=== PATIENT | female | born 1970 | race Caucasian/White ===

== ENCOUNTER 2018-06-12 02:25 | Outpatient (CLI) | payer MEDICAID, SELFPAY ==
[2018-06-12 13:14] LABS: Anion Gap 6.8 mmol/L (3-11); BUN 14 mg/dL (7-18); CO2 32.2 mmol/L (21.0-32.0); CREATININE 0.57 mg/dL (0.55-1.02); Calcium 8.2 mg/dL (8.5-10.1); Chloride 103 mmol/L (98-107); Glucose 75 mg/dL (70-100); Potassium 3.8 mmol/L (3.5-5.1); Sodium 142 mmol/L (136-145); TSH (W/Ref FT4) 0.01 uIU/mL (0.358-3.74)
[2018-06-12 13:36] LABS: FREE T4 0.96 ng/dL (0.76-1.46)
== END 2018-06-12 02:45 ==
DX: E03.9 Hypothyroidism, unspecified (principal); G47.00 Insomnia, unspecified; F41.9 Anxiety disorder, unspecified; K59.00 Constipation, unspecified; F79 Unspecified intellectual disabilities; Z00.00 Encounter for general adult medical examination without abnormal findings
CPT/HCPCS: 36415; 80048; 84439; 84443

== ENCOUNTER 2018-06-26 15:38 | Outpatient (REF) | payer MEDICAID, SELFPAY ==
--- NOTE | 2018-06-26 13:45 | PAPFT_PTH ---
PATIENT: Aleisha Bianchi LOC: DOT U#:[id number] AGE/SX: 48/F ROOM: RE06/26/[address]: Kika Quach APRN : 1970 BED: DIS: 06/26/2018 SPEC #: [id number] RECD: 06/26/18 18:15 STATUS: HOANG REFaby #: [id number] KAREN: 06/26/18 13:[address]: Kika Quach DEPT: [facility] Cytology RECD BY: Cherri Luo Tissues: 1 - CX/ENDOCX FOR PAP SMEARS Procedures: PAP THIN PREP/UVM Screening HPV DNA PROBE Comments: [id number]
== END 2018-06-26 15:58 ==
LOC: LBN 15:38
DX: Z12.4 Encounter for screening for malignant neoplasm of cervix (principal); Z11.51 Encounter for screening for human papillomavirus (HPV)
CPT/HCPCS: 88142; 87624

== ENCOUNTER 2018-07-10 00:54 | Outpatient (CLI) | payer MEDICAID, SELFPAY ==
--- NOTE | 2018-07-10 12:30 | DI.MAMMO_ITS ---
SYMPTOM/DIAGNOSIS: SCREENING Z12.31 MAMMOGRAM: Mammograms were interpreted according to the usual protocol including computer analysis with CAD system, tomosynthesis and C view imaging. Comparison with prior examinations. Breast density D. No suspicious masses or microcalcifications are seen. There is a question of an area of asymmetric density in the supraareolar region of the left breast appreciated on the medial, lateral oblique view. Spot compression views requested for further evaluation. Ultrasound may also be obtained.. IMPRESSION: Additional views of the left breast as described above Category 0 - D MQSA ASSESSMENT OF FINDINGS: Incomplete: Needs additional imaging evaluation. Category 0. Patient will receive a letter notifying them of these results. BI-RADS category D. The breasts are extremely dense, which lowers the sensitivity of mammography..
== END 2018-07-10 01:14 ==
DX: Z12.31 Encounter for screening mammogram for malignant neoplasm of breast (principal); R92.8 Other abnormal and inconclusive findings on diagnostic imaging of breast
CPT/HCPCS: 77063; 77067

== ENCOUNTER 2018-08-01 00:39 | Outpatient (CLI) | payer MEDICAID, SELFPAY ==
--- NOTE | 2018-08-01 02:50 | DI.COMBO_ITS ---
SYMPTOM/DIAGNOSIS: F/U MAMMO, ASYMMETRIC DENSITY LT BREAST LEFT BREAST ADDITIONAL VIEWS AND LEFT BREAST ULTRASOUND; Additional images are interpreted according to the usual protocol including tomosynthesis and 2D imaging. Additional views of the left breast fail to show a persistent discrete mass. Breast density, Category D. Ultrasound was performed of the upper inner and upper outer quadrants. No cystic or solid masses are seen sonographically. IMPRESSION: No evidence for malignancy. A 6 month follow up left breast mammogram is requested for re-evaluation. Category 3. The findings were discussed with the patient and her elderly caregiver on the date of the examination. MQSA ASSESSMENT OF FINDINGS: Probably benign. Six month follow-up recommended. Category 3. Patient will receive a letter notifying them of these results. BI-RADS category D. The breasts are extremely dense, which lowers the sensitivity of mammography.
== END 2018-08-01 00:59 ==
DX: Z12.31 Encounter for screening mammogram for malignant neoplasm of breast (principal); R92.8 Other abnormal and inconclusive findings on diagnostic imaging of breast; N64.59 Other signs and symptoms in breast
CPT/HCPCS: 76642; 77063; 77067

== ENCOUNTER 2019-01-15 01:07 | Outpatient (CLI) | payer MEDICAID, SELFPAY ==
[2019-01-15 13:44] LABS: TSH (W/Ref FT4) < 0.01 uIU/mL (0.36-3.74)
[2019-01-15 14:05] LABS: FREE T4 1.11 ng/dL (0.76-1.46)
== END 2019-01-15 01:27 ==
DX: E03.9 Hypothyroidism, unspecified (principal)
CPT/HCPCS: 36415; 84439; 84443

== ENCOUNTER 2019-01-31 01:25 | Outpatient (CLI) | payer MEDICAID, SELFPAY ==
--- NOTE | 2019-01-31 14:58 | DI.MAMMO_ITS ---
EXAM: MG MAMMO DIAGNOSTIC UNI CLINICAL HISTORY: 6 MO F/U Z09, R28.2 ABNORMAL FINDINGS. TECHNIQUE: Mammograms were interpreted according to the usual protocol including computer analysis w [employer] CAD system, tomosynthesis and C-view imaging. FINDINGS: Left breast mammogram and additional mammographic views of the left breast were obtained. The breast is extremely dense. No dominant mass or clumped microcalcification. No change in appearance in com parison with previous examinations including June 2018. IMPRESSION: No specific evidence of malignancy. I would suggest the routine screening mammograms resume with a bi lateral mammogram in 6 months. Category 3. Breast density, category D. BI-RADS Cat 3 - Annual - Resume Annual Screening. Breast Density - Category D - Extremely dense.
== END 2019-01-31 01:45 ==
PROVIDERS: PCP Nurse Practitioner
DX: R92.8 Other abnormal and inconclusive findings on diagnostic imaging of breast (principal); Z12.31 Encounter for screening mammogram for malignant neoplasm of breast; N64.59 Other signs and symptoms in breast
CPT/HCPCS: 77061; 77065; G0279

== ENCOUNTER 2019-06-27 02:46 | Outpatient (CLI) | payer MEDICAID, SELFPAY ==
[2019-06-27 12:27] LABS: ALT 19 U/L (14-59); AST 17 U/L (15-37); Albumin 3.8 g/dL (3.4-5.0); Alkaline Phosphatase 71 U/L (46-116); Anion Gap 8.8 mmol/L (3-11); BUN 16 mg/dL (7-18); Bilirubin, Total 0.4 mg/dL (0.2-1.0); CO2 30.2 mmol/L (21.0-32.0); CREATININE 0.56 mg/dL (0.55-1.02); Calcium 8.7 mg/dL (8.5-10.1); Chloride 104 mmol/L (98-107); Glucose 74 mg/dL (74-106); Potassium 3.7 mmol/L (3.5-5.1); Sodium 143 mmol/L (136-145); Total Protein 6.8 g/dL (6.4-8.2)
[2019-06-27 12:28] LABS: TSH (W/Ref FT4) < 0.01 uIU/mL (0.36-3.74)
[2019-06-27 12:51] LABS: FREE T4 1.14 ng/dL (0.76-1.46)
== END 2019-06-27 03:06 ==
PROVIDERS: PCP Nurse Practitioner
DX: E03.9 Hypothyroidism, unspecified (principal); F41.9 Anxiety disorder, unspecified; F79 Unspecified intellectual disabilities; K59.00 Constipation, unspecified; Z00.00 Encounter for general adult medical examination without abnormal findings
CPT/HCPCS: 36415; 80053; 84439; 84443

== ENCOUNTER 2020-01-09 04:24 | Outpatient (CLI) | payer MEDICAID, SELFPAY ==
[2020-01-09 12:58] LABS: Calculated LDL 110 mg/dL (<100); Cholesterol 185 mg/dL (<200); HDL Cholesterol 64 mg/dL (40-60); Triglyceride 58 mg/dL (<150)
[2020-01-09 13:07] LABS: TSH < 0.01 uIU/mL (0.36-3.74)
== END 2020-01-09 04:44 ==
PROVIDERS: PCP Nurse Practitioner; Visit Provider Nurse Practitioner
DX: E03.9 Hypothyroidism, unspecified (principal); E78.5 Hyperlipidemia, unspecified
CPT/HCPCS: 36415; 80061; 84443

== ENCOUNTER 2020-01-23 02:04 | Outpatient (CLI) | payer MEDICAID, SELFPAY ==
--- NOTE | 2020-01-23 08:30 | DI.US_ITS ---
EXAM: US THYROID CLINICAL HISTORY: pt believes thyroid congenitally absent-HYPOTHYROIDISM,E03.9. TECHNIQUE: Ultrasound thyroid performed using standard protocol. COMPARISON: No exams were available for comparison FINDINGS: No thyroid tissue is identified in its usual location. No masses or adenopathy is seen.. IMPRESSION: No thyroid tissue is identified. An ectopic thyroid could be considered. DATA REPOSITORY:
== END 2020-01-23 02:24 ==
PROVIDERS: PCP Nurse Practitioner; Visit Provider Nurse Practitioner
DX: E03.9 Hypothyroidism, unspecified (principal)
CPT/HCPCS: 76536

== ENCOUNTER 2020-02-25 03:43 | Outpatient (CLI) | payer MEDICAID, SELFPAY ==
[2020-02-25 13:01] LABS: TSH < 0.01 uIU/mL (0.36-3.74)
== END 2020-02-25 04:03 ==
PROVIDERS: PCP Nurse Practitioner; Visit Provider Nurse Practitioner
DX: E03.9 Hypothyroidism, unspecified (principal)
CPT/HCPCS: 36415; 84443

== ENCOUNTER 2020-04-08 03:32 | Outpatient (CLI) | payer MEDICAID, SELFPAY ==
[2020-04-08 12:56] LABS: TSH (W/Ref FT4) < 0.01 uIU/mL (0.36-3.74)
[2020-04-08 13:48] LABS: FREE T4 0.58 ng/dL (0.76-1.46)
== END 2020-04-08 03:52 ==
PROVIDERS: PCP Nurse Practitioner; Visit Provider Nurse Practitioner
DX: E03.1 Congenital hypothyroidism without goiter (principal)
CPT/HCPCS: 36415; 84439; 84443

== ENCOUNTER 2020-08-20 03:33 | Outpatient (CLI) | payer MEDICAID, SELFPAY ==
[2020-08-20 12:51] LABS: FREE T4 1.11 ng/dL (0.76-1.46)
[2020-08-20 12:54] LABS: TSH < 0.01 uIU/mL (0.36-3.74)
== END 2020-08-20 03:34 | disposition home or self-care (01) ==
LOC: LOS 03:33
PROVIDERS: PCP Nurse Practitioner; Visit Provider Nurse Practitioner
DX: E03.9 Hypothyroidism, unspecified (principal)
CPT/HCPCS: 36415; 84439; 84443

== ENCOUNTER 2020-10-06 01:53 | Outpatient (CLI) | payer MEDICAID, SELFPAY ==
--- NOTE | 2020-10-06 11:20 | DI.MAMMO_ITS ---
Exam(s) MAMMO SCREENING EXAM: MAMMO SCREENING CLINICAL HISTORY: screening,Z12.39. TECHNIQUE: Bilateral full field digital CC and MLO mammographic images were obtained with 3D tomosyn thesis and utilizing computer aided detection (CAD). COMPARISON: Prior mammograms dating back to 2012, the most recent being January 2019. Prior breast ultrasound July 2018 was also reviewed. FINDINGS: The fibroglandular tissue is very dense, this decreasing the sensitivity of the mammogram for finding hidden underlying lesions. No new significant radiograph findings in left breast. In the right breast there is a 4 x 3 millimeter asymmetric density-possible nodule located 6 cm in fr om the nipple in the medial aspect of the breast, best seen on 3D cc imaging. Approximately 3 o'cloc k position. Spot compression view recommended. There is no significant architectural distortion nor skin thickening-retraction. IMPRESSION: Dense bilateral fibroglandular tissue. No obvious radiographic evidence of malignancy in the left br east. Possible 4 x 3 millimeter nodule in the medial aspect of the right breast. 3D Spot compressio n CC view and ultrasound recommended. BI-RADS Category 0 - Assessment Incomplete: Need additional imaging evaluation Breast Density - Category D - Extremely dense Breast density Category C or D implies that the patient has dense breast tissue. Dense breast tissue can make it harder to find cancer on a mammogram. Dense breast tissue is also associated with an incr eased risk of breast cancer. This information about the result of the mammogram report was provided to the patient to raise their awareness. Use this report when you speak with the patient about their risks for breast cancer, which includes their family history. At that time, you may recommend additional screening tests (Ultrasoun d or MRI) as these tests may add significant information. A negative radiographic report should not delay biopsy if a dominant or clinically suspicious mass is present. Up to ten percent of cancers are not identified on mammography. A negative report may reinforce clinical impression. Adenosis and dense breasts may obscure an underlying neoplasm. False positive reports average 6 to 10%. Patient will receive a letter notifying them of these results.
== END 2020-10-06 02:13 ==
PROVIDERS: PCP Nurse Practitioner; Visit Provider Nurse Practitioner
DX: Z12.31 Encounter for screening mammogram for malignant neoplasm of breast (principal); R92.8 Other abnormal and inconclusive findings on diagnostic imaging of breast
CPT/HCPCS: 77063; 77067

== ENCOUNTER 2020-10-08 01:15 | Outpatient (CLI) | payer MEDICAID, SELFPAY ==
--- NOTE | 2020-10-08 | DI.US_ITS ---
Exam(s) US BREAST RT LIMITED EXAM: US BREAST RT COMPLETE CLINICAL HISTORY: F/U MAMMO, RT ASYMMETRIC DENSITY, ? NODULE. TECHNIQUE: COMPLETE ULTRASOUND EXAMINATION OF RIGHT BREAST WAS PERFORMED INCLUDING ALL 4 QUADRANTS A S WELL THE RETROAREOLAR REGION AND RIGHT AXILLA. COMPARISON: Prior mammograms were reviewed. Today's additional spot mammographic view was also revie wed. FINDINGS: There is no evidence of solid or significant cystic lesion in all 4 quadrants of the right breast. R etroareolar region is also negative. There is no significant adenopathy in the right axilla. IMPRESSION: Negative right breast ultrasound. Appropriate follow-up is repeat right breast mammogram in 6 months. BI-RADS Category 3 - 6 month - Probably Benign Finding: Recommend follow-up mammography in 6 months Breast Density - Category D - Extremely dense Breast density Category C or D implies that the patient has dense breast tissue. Dense breast tissue can make it harder to find cancer on a mammogram. Dense breast tissue is also associated with an incr eased risk of breast cancer. This information about the result of the mammogram report was provided to the patient to raise their awareness. Use this report when you speak with the patient about their risks for breast cancer, which includes their family history. At that time, you may recommend additional screening tests (Ultrasoun d or MRI) as these tests may add significant information. A negative radiographic report should not delay biopsy if a dominant or clinically suspicious mass is present. Up to ten percent of cancers are not identified on mammography. A negative report may reinforce clinical impression. Adenosis and dense breasts may obscure an underlying neoplasm. False positive reports average 6 to 10%. Patient will receive a letter notifying them of these results.
--- NOTE | 2020-10-08 13:46 | DI.MAMMO_ITS ---
Exam(s) MAMMO SCREEN CALL BACK UNI EXAM: MAMMO SCREEN CALL BACK UNI CLINICAL HISTORY: F/U MAMMO, RT ASYMMETRIC DENSITY, ? NODULE. TECHNIQUE: Unilateral spot mammographic images were obtained with 3D tomosynthesis and utilizing com puter aided detection (CAD). . Right breast Ultrasound was also performed. COMPARISON: Prior mammograms were reviewed. This additional imaging was performed due to findings described on the recent screening mammogram of 10/06/2020. FINDINGS: Additional mammographic views performed todayrender this area less concerning. Ultrasound performed today reveals no evidence of solid or significant cystic lesions in all 4 quadra nts.. IMPRESSION: No radiographic evidence of malignancy. Also negative right breast ultrasound Appropriate follow-up is repeat right breast mammogram in 6 months. BI-RADS Category 3 - 6 month - Probably Benign Finding: Recommend follow-up mammography in 6 months Breast Density - Category D - Extremely dense Breast density Category C or D implies that the patient has dense breast tissue. Dense breast tissue can make it harder to find cancer on a mammogram. Dense breast tissue is also associated with an incr eased risk of breast cancer. This information about the result of the mammogram report was provided to the patient to raise their awareness. Use this report when you speak with the patient about their risks for breast cancer, which includes their family history. At that time, you may recommend additional screening tests (Ultrasoun d or MRI) as these tests may add significant information. A negative radiographic report should not delay biopsy if a dominant or clinically suspicious mass is present. Up to ten percent of cancers are not identified on mammography. A negative report may reinforce clinical impression. Adenosis and dense breasts may obscure an underlying neoplasm. False positive reports average 6 to 10%. Patient will receive a letter notifying them of these results.
== END 2020-10-08 01:35 ==
PROVIDERS: PCP Nurse Practitioner; Visit Provider Nurse Practitioner
DX: Z12.31 Encounter for screening mammogram for malignant neoplasm of breast (principal); R92.8 Other abnormal and inconclusive findings on diagnostic imaging of breast; N64.59 Other signs and symptoms in breast
CPT/HCPCS: 76642; 77063; 77067

== ENCOUNTER 2021-07-22 02:31 | Outpatient (CLI) | payer MEDICAID, SELFPAY ==
--- NOTE | 2021-07-22 07:45 | DI.MAMMO_ITS ---
Exam(s) MAMMO DIAGNOSTIC UNI EXAM: MAMMO DIAGNOSTIC UNI CLINICAL HISTORY: 3-6 mo f/u R92.8 ABNL MAMMO Z09 6 MO FU TECHNIQUE: Mammograms were interpreted according to the usual protocol including computer analysis w ith CAD system, tomosynthesis and C-view imaging. COMPARISON: FINDINGS: Right breast mammogram was obtained to follow an area of asymmetric density seen on prior mammogram o f September 2020. On today's examination this is unchanged or less prominent. No new mass or clumped rui rocalcification seen. IMPRESSION: No specific evidence of malignancy at this time. I would suggest that routine screening examinations resume with a bilateral mammogram in 6 months. BI-RADS Category 3 - 6 month - Probably Benign Finding: Recommend follow-up mammography in 6 months Breast Density - Category C - Heterogeneously dense
== END 2021-07-22 02:51 ==
PROVIDERS: PCP Nurse Practitioner; Visit Provider Nurse Practitioner
DX: R92.8 Other abnormal and inconclusive findings on diagnostic imaging of breast (principal); Z09 Encounter for follow-up examination after completed treatment for conditions other than malignant neoplasm
CPT/HCPCS: 77061; 77065; G0279

== ENCOUNTER 2021-07-27 04:19 | Outpatient (CLI) | payer MEDICAID, SELFPAY ==
[2021-07-27 12:50] LABS: TSH (W/Ref FT4) < 0.01 uIU/mL (0.36-3.74)
== END 2021-07-27 04:20 | disposition home or self-care (01) ==
LOC: LBO 04:19
PROVIDERS: PCP Nurse Practitioner; Visit Provider Nurse Practitioner
DX: E03.9 Hypothyroidism, unspecified (principal)
CPT/HCPCS: 36415; 84439; 84443

== ENCOUNTER → 2022-03-08 03:23 | Outpatient (CLI) | payer MEDICAID, SELFPAY ==
--- NOTE | 2022-03-08 12:45 | DI.MAMMO_ITS ---
Exam(s) MAMMO SCREENING EXAM: MAMMO SCREENING CLINICAL HISTORY: screening,z12,39 TECHNIQUE: Mammograms were interpreted according to the usual protocol including computer analysis w [employer] CAD system, tomosynthesis and C-view imaging. COMPARISON: 2012 through 2021 FINDINGS: The breasts are composed of heterogeneously dense fibroglandular densities, Breast Density category C . No suspicious masses or suspicious microcalcifications are seen. No skin thickening or abnormal axillary lymph nodes are seen. There has been no significant change from prior exams. IMPRESSION: BI-RADS Category 1, Negative mammogram. Yearly screening mammography is recommended. Breast Density Category C, heterogeneously Dense. The mammogram demonstrates the patient's breast tissue is dense. Dense breast tissue is very common a nd is not abnormal but dense breast tissue can make it harder to find cancer on a mammogram. Also, de nse breast tissue may increase breast cancer risk. This information about the result of the mammogram report was provided to the patient to raise their awareness. Use this report when you speak with the patient about their risks for breast cancer, which includes their family history. At that time, you may recommend additional screening tests (Ultrasound or MRI) as they might be useful based on their r isk. A negative radiographic report should not delay biopsy if a dominant or clinically suspicious mass is present. Up to ten percent of cancers are not identified on mammography. A negative report may reinforce clinical impression. Adenosis and dense breasts may obscure an underlying neoplasm. False positive reports average 6 to 10%.
== END ==
PROVIDERS: PCP Nurse Practitioner Family; Visit Provider Nurse Practitioner Family
DX: Z12.31 Encounter for screening mammogram for malignant neoplasm of breast (principal); R92.8 Other abnormal and inconclusive findings on diagnostic imaging of breast
CPT/HCPCS: 77063; 77067

== ENCOUNTER 2022-08-06 01:14 | Outpatient (CLI) | payer MEDICAID, SELFPAY ==
[2022-08-06 12:20] LABS: HCT 35.6 % (36.0-46.0); HGB 11.7 g/dL (11.2-15.7); MCH 31.5 pg (27.0-33.0); MCHC 32.9 % (32.0-36.0); MCV 96 fL (80-95); MPV 11.7 fL (8.0-11.0); Platelet Count 142 10^3/uL (130-400); RBC 3.71 10^6/uL (3.93-5.22); RDW 12.3 % (11.7-14.6); RDW-SD 43.3 fL; WBC 4.19 10^3/uL (4.4-10.8)
[2022-08-06 12:48] LABS: ALT 21 U/L (14-59); AST 19 U/L (15-37); Albumin 3.6 g/dL (3.4-5.0); Alkaline Phosphatase 60 U/L (46-116); Anion Gap 2.9 mmol/L (3-11); BUN 13 mg/dL (7-18); Bilirubin, Total 0.3 mg/dL (0.2-1.0); CO2 33.1 mmol/L (21.0-32.0); CREATININE 0.5 mg/dL (0.55-1.02); Calcium 8.7 mg/dL (8.5-10.1); Calculated LDL 99 mg/dL (<100); Chloride 104 mmol/L (98-107); Cholesterol 179 mg/dL (<200); Estimated GFR 114.19 (mL/min/1.73m2); Glucose 75 mg/dL (74-106); HDL Cholesterol 68 mg/dL (40-60); Potassium 3.5 mmol/L (3.5-5.1); Sodium 140 mmol/L (136-145); Total Protein 6.8 g/dL (6.4-8.2); Triglyceride 62 mg/dL (<150)
[2022-08-06 12:56] LABS: TSH (W/Ref FT4) < 0.01 uIU/mL (0.36-3.74)
[2022-08-06 13:13] LABS: FREE T4 0.97 ng/dL (0.76-1.46)
== END 2022-08-06 01:15 | disposition home or self-care (01) ==
LOC: LOS 01:15
PROVIDERS: PCP Nurse Practitioner Family; Visit Provider Nurse Practitioner Family
DX: E03.9 Hypothyroidism, unspecified (principal); F42.4 Excoriation (skin-picking) disorder; K59.09 Other constipation; Z00.00 Encounter for general adult medical examination without abnormal findings
CPT/HCPCS: 36415; 80053; 80061; 85027; 84439; 84443

== ENCOUNTER 2023-08-09 03:59 | Outpatient (CLI) | payer MEDICAID, SELFPAY ==
[2023-08-09 13:33] LABS: Anion Gap 7.4 mmol/L (3-11); BUN 18 mg/dL (7-18); CO2 30.6 mmol/L (21.0-32.0); CREATININE 0.5 mg/dL (0.55-1.02); Calcium 8.5 mg/dL (8.5-10.1); Chloride 105 mmol/L (98-107); Estimated GFR 113.48 (mL/min/1.73m2); Glucose 79 mg/dL (74-106); Potassium 3.9 mmol/L (3.5-5.1); Sodium 143 mmol/L (136-145); TSH (W/Ref FT4) < 0.01 uIU/mL (0.36-3.74)
[2023-08-09 14:27] LABS: Calculated LDL 132 mg/dL (<100); Cholesterol 206 mg/dL (<200); HDL Cholesterol 64 mg/dL (40-60); Triglyceride 54 mg/dL (<150)
== END 2023-08-09 04:00 | disposition home or self-care (01) ==
LOC: LOS 03:59
PROVIDERS: PCP Nurse Practitioner Family; Visit Provider Nurse Practitioner Family
DX: Z00.00 Encounter for general adult medical examination without abnormal findings (principal); E03.1 Congenital hypothyroidism without goiter; F41.9 Anxiety disorder, unspecified; F79 Unspecified intellectual disabilities; H91.93 Unspecified hearing loss, bilateral
CPT/HCPCS: 36415; 80048; 80061; 84439; 84443

== ENCOUNTER 2024-02-08 19:00 | Emergency (ER) | payer MEDICAID, SELFPAY ==
[2024-02-08 19:05] VITALS: BP 117/67; PULSE 109; RESP 16; TEMP 36.1; O2SAT 98
--- NOTE | 2024-02-08 19:10 | ED.GENADUL_ITS ---
Discharge Plan Disposition Patient Disposition: Home Condition: Stable Discharge Details Clinical Impression: Fracture of right patella Primary Care Provider: Flory Parra ED Provider: Gino Chambers Home Meds and New Rx's Prescriptions: Continued multivitamin [Once Daily] 1 EACH tablet 1 tab PO DAILY ascorbic acid (vitamin C) [Vitamin C] 500 MG tablet 500 mg PO DAILY sertraline [Zoloft] 50 mg tablet 50 mg PO DAILY Qty: 90 4RF Rx Instructions: 1 tab at bedtime docusate sodium [Colace] 100 mg capsule 200 mg PO DAILY Qty: 180 4RF levothyroxine 100 mcg tablet 100 mcg PO DAILY Qty: 90 4RF Discharge Instructions Instructions: Patella Fracture ED Additional Instructions: You were seen in the emergency department for buying a Bianchi is a slip and fall with a nondisplaced right patella fracture. Please remain in the knee immobilizer keeping the leg straight. Please rest, ice, compress and elevate often, please use therapeutic dosing of Tylenol (acetamenophen) & Advil (ibuprofen) in an alternating fashion as follows: Take 1000mg of Tylenol every 6 hours without missing doses- that is 4 times per day. [place] in between the Tylenol dosings, take 400-600mg of Advil also on a 6 hour schedule, that is also 4 times per day. The daily maximum dosing of Tylenol is 4000mg, and the daily maximum dosing of Advil is 2400mg. This is safe to do for weeks. Please note that some common cold medications & prescription pain medications may contain acetamenophen and you need to read OTC drug labels and factor that in to maximum daily dosings. Please follow-up with PCP or orthopedics for x-rays to ensure routine healing, you may toe tap/very partially weight-bear as tolerated around the home. We provided you with a knee immobilizer and walker, please return to the emergency department for any signs of neurovascular compromise to the right lower extremity Referrals: Flory Parra, DOLLY [Primary Care Provider] - HPI General Date/Time Provider Initiated Documentation: 02/08/24 19:10 . HPI Narrative: 53 year-old female presents to ED today by POV/ambulating with her home provider, with consent from her guardian, Tracy, with a chief complaint of fall yesterday causing R knee pain. Quality described as very tender area and s welling to R knee, severe limping with ambulating, no radiation to numbness/tingling distally, denies hip pain, denies headstrike/LOC, denies palpitations/dizziness at time of fall. Severity is described as severe. Palliating factors include Tylenol with mild relief. Provoking factors include nothing specific. Events leading up to the incident/Associated Symptoms: Patient is normally very ambulatory at baseline. Patient not anticoagulated. Related Data Home Medications ?Medication ?Instructions ?Recorded ?Confirmed multivitamin (Once Daily tablet) 1 tab PO DAILY 08/31/12 02/08/24 ascorbic acid (vitamin C) 500 mg 500 mg PO DAILY 02/22/13 02/08/24 tablet (Vitamin C) sertraline 50 mg tablet (Zoloft) 50 mg PO DAILY #90 tabs 10/10/23 02/08/24 docusate sodium 100 mg capsule 200 mg (2 x 100 mg) PO DAILY #180 11/29/23 02/08/24 (Colace) tab-caps levothyroxine 100 mcg tablet 100 mcg PO DAILY #90 tabs 11/29/23 02/08/24 Previous Rx's ?Medication ?Instructions ?Recorded sertraline 50 mg tablet (Zoloft) 50 mg PO DAILY #90 tabs 10/10/23 docusate sodium 100 mg capsule 200 mg (2 x 100 mg) PO DAILY #180 11/29/23 (Colace) tab-caps levothyroxine 100 mcg tablet 100 mcg PO DAILY #90 tabs 11/29/23 Allergies Allergy/AdvReac Type Severity Reaction Status Date / Time No Known Allergies Allergy Verified 02/08/24 19:11 General Stated Complaint: Orthopedic JUNAID: 4 Review of Systems All systems reviewed & are unremarkable except as noted in HPI and below Exam Narrative Exam Narrative: GENERAL APPEARANCE: Well-nourished, non-toxic, awake and alert, atraumatic, no acute distress. SKIN: Warm, pink, dry, intact, without rashes/lesions/ulcerations. HEAD: Normocephalic, atraumatic, normal hair distribution for gender/age. EYES: Normal conjunctiva, no exudates on lids/lashes. ENT: Nares patent, no circumoral cyanosis, no facial swelling NECK: Supple, trachea midline, painless cervical ROM. LUNGS/CHEST: Non-labored respirations, normal A/P diameter, symmetrical expansion, no chest wall deformity HEART (CV/PV): No peripheral edema, no JVD. ABDOMEN: Soft, non-distended, no guarding. MSK: Normal ROM, no swelling/deformity to bilateral UEs or LEs, moving all extremities without weakness, no cyanosis, spine midline without tenderness, normal curvature, diffuse swelling to the right knee with exquisite tenderness to the patella without overt crepitus, no varus valgus laxity, no anterior drawer laxity, mild joint line tenderness, no popliteal fossa tenderness, neurovascular intact NEURO: Mental Status AAOx4 - alert to person, place, time, events No facial droop, no forehead involvement. Motor: No focal weakness - strength 5/5 in bilateral UEs and LEs, proximal and distal, symmetric. Sensory: sensation intact to light touch globally. Gait normal: patient ambulated without ataxia into ED room. PSYCH: euthymic, cooperative, pleasant, appropriate speech Course Vital Signs Vital signs: Vital Signs Temperature 36.1 C L 02/08/24 19:05 Pulse 109 H 02/08/24 19:05 Respiratory Rate 16 02/08/24 19:05 Blood Pressure 117/67 02/08/24 19:05 Pulse Oximetry 98 02/08/24 19:05 Temperature 36.1 C L 02/08/24 19:05 Pulse 109 H 02/08/24 19:05 Respiratory Rate 16 02/08/24 19:05 Blood Pressure 117/67 02/08/24 19:05 Pulse Oximetry 98 02/08/24 19:05 Pain Level 6 02/08/24 19:05 Medical Decision Making This dictation utilizes [id number] dictation software and may contain unedited grammatical errors. 53 year-old female presents to ED today by POV/ambulating with her home provider, with consent from her guardian, Tracy, with a chief complaint of fall yesterday causing R knee pain. Quality described as very tender area and swelling to R knee, severe limping with ambulating, no radiation to numbness/ti ngling distally, denies hip pain, denies headstrike/LOC, denies palpitations/dizziness at time of fall. Severity is described as severe. Palliating factors include Tylenol with mild relief. Provoking factors include nothing specific. Events leading up to the incident/Associated Symptoms: Patient is normally very ambulatory at baseline. Patients' medical history: MR, constipation, sensorineural hearing loss bilaterally. Family and social history: Lives at home with a home special education instructor for the past 20 years, eats normal diet, exercises regularly. Pertinent exam findings / vital signs include diffuse swelling and mild ecchymosis to the right knee with exquisite tenderness to the patella, no obvious ligamentous laxity with varus valgus forces or anterior drawer, not cooperative with Uma testing, no unilateral calf swelling or skin changes. Differential / pathologies of concern include fracture, sprain/strain, contusion. Diagnostic studies of: -XR R knee-shows nondisplaced patellar fracture. Interventions of: -Consulted with orthopedics Dr. Strange, recommend knee immobilizer and crutches or walker, toe tapping, significant RICE therapy and repeat x-rays to ensure routine healing. ED Course/Assessment/Plan: 53-year-old female presents after a fall yesterday and having difficulty ambulating today with significant right knee pain, to a lesser degree bilateral hand pain but states it is not painful, has diffuse swelling and mild ecchymosis with exquisite tenderness to patella, x-ray shows patellar fracture that is nondisplaced, patient needs to remain in knee immobilizer perform significant RICE protocol as well as therapeutic dosing of Tylenol and ibuprofen was counseled on this as well as home provider was counseled. I updated the patient's guardian Tracy regarding this and they will pursue follow-up x-rays to ensure routine healing, history of strict return criteria for any neurovascular compromise distal to the injury. Findings not consistent with inability to use walker, neurovascular compromise. Disposition of Fracture of Right Patella. Patient verbalized understanding of the plan and return to ED criteria and engaged in shared decision making. Medical Records Medical records reviewed: Yes I reviewed the patient's medical records. Imaging Data Radiologic Study: Attestation: I personally reviewed and interpreted this imaging study as follows: Imaging: X-Ray My impression: Non-displaced patellar fracture Radiologist's impression: Exam: XR Right Knee Exam date and time: 02/08/2024 19:39 Age: 53 years old Clinical indication: Other: RT knee pain TECHNIQUE: Imaging protocol: Radiologic exam of the right knee. Views: 3 views. COMPARISON: No relevant prior studies available. FINDINGS: Bones/joints: Acute intra-articular fracture of the patella with trace inferior distraction. Large joint effusion. No dislocation. Soft tissues: Soft tissue swelling anteriorly. IMPRESSION: 1. Acute intra-articular fracture of the patella with trace inferior distraction. 2. Large joint effusion. 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 Social History (Updated 07/15/22 @ 16:37 by Cary Roche) Smoking/Tobacco Use Status: Never Second Hand Exposure: No Smoking risk assessment performed?: Yes Alcohol Intake: never Drug use: Never Substance use type: does not use Caregiver/Support person: Yes Household members: significant other and other Details: Home Providers - Kristyn Housing: house Communication Needs: None Do you need help understanding health information?: Rarely Pets and animals: No Sexually active: No Current gender identity: female What is your relationship status?: never How often do you talk on the phone with friends or family?: decline to answer How often do you get together with friends or relatives?: decline to answer How often do you attend temple or anabaptist services?: decline to answer Do you belong to any clubs or organized social groups?: decline to answer Panel score (0-1 are the most socially isolated patients): 0 What type of physical activity do you participate in: weight lifting Duration: 60-90 minutes/day Frequency: daily Tawanna/Quaker: No preference Special tawanna needs: No Seatbelt use: always Drive intox or ride w/intox stake driver: No
--- NOTE | 2024-02-08 19:15 | DI.RAD_ITS ---
Exam(s) XR KNEE RT 3V AP,LAT,JESUS EXAM: XR KNEE RT 3V AP,LAT,JESUS CLINICAL HISTORY: R knee pain. TECHNIQUE: 2D digital imaging was performed of the right knee. Three views obtained. AP, lateral an d PA tunnel views were obtained. COMPARISON: No exams were available for comparison FINDINGS: BONES: There is an acute nondisplaced transverse fracture through the patella. No bony destructive l esion is seen. JOINTS: The knee is normally aligned. There is a moderate joint effusion. SOFT TISSUE: Normal. IMPRESSION: 1. There is a nondisplaced fracture through the mid patella. 2. There is a joint effusion. DATA REPOSITORY: RADIATION DOSE DELIVERED:
[2024-02-08 20:24] VITALS: BP 128/79; PULSE 82; RESP 16; O2SAT 96
--- NOTE | 2024-02-08 20:37 | DI.VRAD_ITS ---
PROCEDURE INFORMATION: Exam: XR Right Knee Exam date and time: 02/08/2024 19:39 Age: 53 years old Clinical indication: Other: RT knee pain TECHNIQUE: Imaging protocol: Radiologic exam of the right knee. Views: 3 views. COMPARISON: No relevant prior studies available. FINDINGS: Bones/joints: Acute intra-articular fracture of the patella with trace inferior distraction. Large joint effusion. No dislocation. Soft tissues: Soft tissue swelling anteriorly. IMPRESSION: 1. Acute intra-articular fracture of the patella with trace inferior distraction. 2. Large joint effusion. Dictated and Authenticated by: Yin Phipps MD. Ordering:EMMANUEL Christian MD
--- NOTE | 2024-02-09 06:52 | NUR.NOTE ---
[facility] chart to get the discharge diagnosis for [facility] billing form. Nursing Note:
== END 2024-02-08 20:24 | disposition home or self-care (01) ==
PROVIDERS: Emergency Provider Physician Assistant; PCP Nurse Practitioner Family
DX: M25.561 Pain in right knee (principal); S82.034A Nondisplaced transverse fracture of right patella, initial encounter for closed fracture; W19.XXXA Unspecified fall, initial encounter
CPT/HCPCS: 73562; 99283; 99284

== ENCOUNTER 2024-02-28 15:28 | Outpatient (CLI) | payer MEDICAID, SELFPAY ==
--- NOTE | 2024-02-28 10:45 | DI.RAD_ITS ---
Exam(s) XR KNEE RT 2V AP,LAT EXAM: XR KNEE RT 2V AP,LAT CLINICAL HISTORY: F/U FRACTURE. TECHNIQUE: 2D digital imaging was performed of the right knee. Two views obtained. AP and lateral views were obtained. COMPARISON: CR,XR XR KNEE RT 3V AP,LAT,JESUS from 02/08/2024 FINDINGS: BONES: There is stable alignment of the nondisplaced patellar fracture. There is a persistent small joint effusion. This has decreased since the prior examination. JOINTS: The knee is normally aligned. SOFT TISSUE: Normal. IMPRESSION: Stable alignment of the nondisplaced patellar fracture. DATA REPOSITORY: RADIATION DOSE DELIVERED:
== END 2024-02-28 15:29 | disposition home or self-care (01) ==
LOC: DIORS 15:28
PROVIDERS: PCP Nurse Practitioner Family; Visit Provider Student in an Organized Health Care Education/Training Program
DX: S82.001A Unspecified fracture of right patella, initial encounter for closed fracture (principal); W01.0XXA Fall on same level from slipping, tripping and stumbling without subsequent striking against object, initial encounter
CPT/HCPCS: 73560

== ENCOUNTER 2024-04-03 14:46 | Outpatient (CLI) | payer MEDICAID, SELFPAY ==
--- NOTE | 2024-04-03 10:00 | DI.RAD_ITS ---
Exam(s) XR KNEE RT 2V AP,LAT EXAM: XR KNEE RT 2V AP,LAT INDICATION: F/U FRACTURE. COMPARISON: CR XR KNEE RT 2V AP,LAT from 02/28/2024 TECHNIQUE: 2D digital imaging was performed. Two views. FINDINGS: There has been no change in the alignment of the patellar fracture which shows some increased healing since the previous exam. DATA REPOSITORY: RADIATION DOSE DELIVERED:
== END 2024-04-03 14:47 | disposition home or self-care (01) ==
LOC: DIORS 14:46
PROVIDERS: PCP Nurse Practitioner Family; Visit Provider Student in an Organized Health Care Education/Training Program
DX: S82.034D Nondisplaced transverse fracture of right patella, subsequent encounter for closed fracture with routine healing (principal); X58.XXXD Exposure to other specified factors, subsequent encounter
CPT/HCPCS: 73560

== ENCOUNTER 2024-09-05 03:26 | Outpatient (CLI) | payer MEDICAID, SELFPAY ==
[2024-09-05 12:33] LABS: ALT 18 U/L (14-59); AST 23 U/L (15-37); Albumin 3.9 g/dL (3.4-5.0); Alkaline Phosphatase 93 U/L (46-116); Anion Gap 3.9 mmol/L (3-11); BUN 16 mg/dL (7-18); Bilirubin, Total 0.4 mg/dL (0.2-1.0); CO2 34.1 mmol/L (21.0-32.0); CREATININE 0.5 mg/dL (0.55-1.02); Calculated LDL 150 mg/dL (<100); Chloride 103 mmol/L (98-107); Cholesterol 230 mg/dL (<200); Estimated GFR 112.78 (mL/min/1.73m2); Glucose 81 mg/dL (74-106); HDL Cholesterol 66 mg/dL (>or=50); Potassium 3.8 mmol/L (3.5-5.1); Sodium 141 mmol/L (136-145); Total Protein 7.2 g/dL (6.4-8.2); Triglyceride 74 mg/dL (<150)
[2024-09-05 12:47] LABS: TSH (W/Ref FT4) < 0.01 uIU/mL (0.36-3.74)
[2024-09-05 13:11] LABS: FREE T4 0.94 ng/dL (0.76-1.46)
== END 2024-09-05 03:27 | disposition home or self-care (01) ==
LOC: LOS 03:26
PROVIDERS: PCP Nurse Practitioner Family; Visit Provider Nurse Practitioner Family
DX: Z00.00 Encounter for general adult medical examination without abnormal findings (principal); E03.1 Congenital hypothyroidism without goiter; K59.04 Chronic idiopathic constipation
CPT/HCPCS: 36415; 80053; 80061; 84439; 84443

== ENCOUNTER 2025-01-08 03:31 | Outpatient (CLI) | payer MEDICAID, SELFPAY ==
--- NOTE | 2025-01-08 12:00 | DI.MAMMO_ITS ---
Exam(s) MAMMO SCREENING EXAM: MAMMO SCREENING CLINICAL HISTORY: screening,Z12.39 TECHNIQUE: Bilateral full field digital CC and MLO mammographic images were obtained with 3D tomosynthesis and utilizing computer aided detection (CAD). COMPARISON: Comparison is made with prior examinations. FINDINGS: Masses/Architectural Distortion: No suspicious masses or areas of architectural distortion are present. Microcalcifications: No suspicious pleomorphic-type are seen. Skin Thickening/Nipple Retraction: None. IMPRESSION: 1. No significant interval change with no specific features of malignancy noted. 2. Unless there is more urgent need, screening mammography is recommended, as per [employer] guidelines. BI-RADS Category 1 - Negative Breast Density - Category C - The breast are heterogeneously dense, which may obscure small masses. Breast density Category C or D implies that the patient has dense breast tissue. Dense breast tissue can make it harder to find cancer on a mammogram. Dense breast tissue is also associated with an increased risk of breast cancer. This information about the result of the mammogram report was provided to the patient to raise their awareness. Use this report when you speak with the patient about their risks for breast cancer, which includes their family history. At that time, you may recommend additional screening tests (Ultrasound or MRI) as these tests may add significant information. A negative radiographic report should not delay biopsy if a dominant or clinically suspicious mass is present. Up to ten percent of cancers are not identified on mammography. A negative report may reinforce clinical impression. Adenosis and dense breasts may obscure an underlying neoplasm. False positive reports average 6 to 10%. Patient will receive a letter notifying them of these results.
== END 2025-01-08 03:51 ==
LOC: DI 03:32
PROVIDERS: PCP Nurse Practitioner Family; Visit Provider Nurse Practitioner Family
DX: Z12.31 Encounter for screening mammogram for malignant neoplasm of breast (principal)
CPT/HCPCS: 77063; 77067